=== PATIENT | male | born 1945 | race Caucasian/White ===

== ENCOUNTER → 2017-03-28 | Outpatient (CLI) | payer MEDICARE, OTHER ==
[~2017-03-28] MED LIST: AMARYL1 MG PO; AMARYL2 MG PO; ASA; ASPIRIN81 M1 PO; ASPIRIN81 M2 PO; CATAPRES0.1 MG PO; CLONIDINE PO; COLCRYS0.6 MG PO; COREG3.125 MG PO; EFFIENT10 MG PO; FISH OIL 1,2001 CAP PO; HYDROCHLOROTHIA25 MG PO; LIPITOR PO; LIPITOR40 MG PO; LORTAB 7.5-5001 TAB PO; NITROGLYGERIN0.4 MG; NORCO 5/325 TAB1 TAB PO; PRINIVIL40 MG PO; SULAR PO; TYLOX 5-500 CA1 EACH PO; VOLTAREN100 GM; ZESTRIL40 MG PO; ZOLOFT50 MG PO
[2017-03-28 10:52] LABS: BASOPHIL# 0.1 X10e3 (0-0.3); EOSINOPHIL# 0.4 X10e3 (0-0.7); HEMATOCRIT 42.1 % (38.0-50.0); HEMOGLOBIN 14.6 gm/dL (13.0-16.0); LYMPHOCYTE# 1.7 X10e3 (1.0-3.5); LYMPHOCYTE% 27.3 % (17.0-45.0); MEAN CELL VOLUME 93.1 FL (83-96); MEAN CORPUSCULAR HEMOGLOBIN 32.2 PG (28-34); MEAN CORPUSCULAR HGB CONC 34.6 g/dL (30-36); MEAN PLATELET VOLUME 8.3 FL (6.5-11.5); MONOCYTE# 0.6 X10e3 (0-1.0); MONOCYTE% 8.8 % (3.0-12.0); NEUTROPHIL# 3.6 X10e3 (1.5-7.1); NEUTROPHIL% 56.9 % (40-75); PLATELET COUNT 254 X10e3 (140-420); RED BLOOD COUNT 4.52 X10e (3.90-5.60); RED CELL DISTRIBUTION WIDTH 13.2 % (11.0-15.5); WHITE BLOOD COUNT 6.4 X10e3 (4.0-10.5)
[2017-03-28 10:54] LABS: DIFF IND NO
[2017-03-28 10:58] LABS: URINE APPEARANCE CLEAR; URINE BILIRUBIN NEG (NEG); URINE BLOOD NEG (NEG); URINE COLOR YELLOW; URINE GLUCOSE 100 MG/DL (NEG); URINE KETONE NEG (NEG); URINE LEUKOCYTE ESTERASE NEG (NEG); URINE NITRATE NEG (NEG); URINE PROTEIN NEG (NEG); URINE SPECIFIC GRAVITY 1.022 (1.003-1.035); URINE UROBILINOGEN 0.2 MG/DL (NEG)
[2017-03-28 11:51] LABS: ALBUMIN SERUM 3.9 g/dL (3.5-5.0); BILIRUBIN,TOTAL 0.3 mg/dL (0.2-2.0); BUN/CREATININE RATIO 12.85; CALCIUM SERUM 9.5 mg/dL (8.4-10.2); CREATININE SERUM 1.4 mg/dL (0.6-1.4); GLOM FILT RATE Estimated 50.2 mL/min (>60); POTASSIUM 4.6 mmol/L (3.5-5.1)
[2017-04-01 18:51] LABS: MICROALB UR (PNL) 1.8 mg/dL (***)
== END | disposition home or self-care (01) ==
LOC: CLAB 10:13
PROVIDERS: Internal Medicine Nephrology
DX: N18.2 Chronic kidney disease, stage 2 (mild) (principal)
CPT/HCPCS: 36415; 80053; 81003; 82043; 82570; 85025